=== PATIENT | female | born 1990 | race African-American/Black ===

== ENCOUNTER 2019-05-02 11:10 | Emergency (ER) | payer SELFPAY | END 2019-05-02 13:00 | disposition left against medical advice (07) | LOC: ERS 11:10 | DX: Z53.21 Procedure and treatment not carried out due to patient leaving prior to being seen by health care provider (principal) ==

== ENCOUNTER 2022-09-05 17:40 | Inpatient (IN) | payer OTHER, BC ==
[2022-09-05] MEDS ORDERED: Morphine 4 MG/ML VIAL ONE (19:02)
[2022-09-05] MEDS ORDERED: Acetaminophen 500 MG TAB ONE (19:02)
[2022-09-05] MEDS ORDERED: Ipratropium/Albuterol 3 ML NEB NEB PRN (19:43)
[2022-09-05] MEDS ORDERED: Morphine 2 MG/ML VIAL SLOW IVP PRN (19:43)
[2022-09-05] MEDS ORDERED: Dextrose 5% in Water 1,000 ML IV PRN (19:43)
[2022-09-05] MEDS ORDERED: Ondansetron ODT 4 MG TAB PO PRN (19:43)
[2022-09-05] MEDS ORDERED: Ondansetron PF 4 MG/2 ML Vial IVP PRN (19:43)
[2022-09-05] MEDS ORDERED: Dextrose 50% Abboject 50 ML SYRINGE SLOW IVP PRN (19:43)
[2022-09-05] MEDS ORDERED: Sodium Chloride 0.9% 1,000 ML IV SCH (19:45)
[2022-09-05] MEDS ORDERED: Cyclobenzaprine 10 MG TAB PO PRN (19:47)
[2022-09-05] MEDS ORDERED: traMADol HCl 50 MG TAB PO PRN ×2 (19:47)
[2022-09-05 20:45] LABS: #Lymphocytes 0.9 thou/uL (1.20-3.40); #Monocytes 0.1 thou/uL (0.11-0.59); #Neutrophils 11.3 thou/uL (1.40-6.50); %Basophils 0.1 % (0.0-1.0); %Eosinophils 0.1 % (0.0-10.0); %Lymphocytes 7.2 % (21.0-51.0); %Neutrophils 91.6 % (42.0-75.0); Hemoglobin 11.2 g/dL (12.0-16.0); Mean Corpuscular HGB CONC 34.8 g/dL (32.0-36.0); Mean Corpuscular Hemoglobin 27.7 pg (27.0-31.0); Mean Corpuscular Volume 79.8 fl (78.0-98.0); Mean Platelet Volume 9.4 fL (7.4-10.4); Platelet Count 193 10x3/uL (130-400); RBC Distribution Width 12.4 % (11.5-14.5); Red Blood Cell (RBC) Count 4.03 mill/uL (4.20-5.40); White Blood Cell (WBC) Count 12.4 10x3/uL (4.8-10.8)
[2022-09-05 21:04] LABS: ALT (SGPT) 26 U/L (8-55); AST (SGOT) 28 U/L (5-34); Albumin 3.6 g/dL (3.5-5.0); Alkaline Phosphatase 38 U/L (40-110); Anion Gap 14 mmol/L (10-20); BUN (Urea Nitrogen) 13 mg/dL (7.0-18.7); Bilirubin, Total 0.4 mg/dL (0.2-1.2); Calc. Creatinine Clearance 0 mL/min (70-130); Calcium 8.4 mg/dL (7.8-10.44); Carbon Dioxide 17 mmol/L (22-29); Chloride 110 mmol/L (98-107); Estimated GFR 99; Globulin 3.4 g/dL (2.4-3.5); Glucose 165 mg/dL (70-105); Potassium 4.2 mmol/L (3.5-5.1); Sodium 137 mmol/L (136-145)
[2022-09-05] MEDS: Acetaminophen 500 MG TAB PO SCH (22:01)
[2022-09-05] MEDS: Senokot S 8.6-50 MG TAB PO SCH (22:03)
[2022-09-05] MEDS: Famotidine 20 MG TAB PO SCH (22:03)
[2022-09-05] MEDS: Ketorolac Tromethamine 30 MG/ML VIAL IVP SCH (22:03)
[2022-09-06 01:18] VITALS: BMI 34.4
[2022-09-06] MEDS: Acetaminophen 500 MG TAB PO SCH ×4 (02:47→20:56)
[2022-09-06] MEDS: Ketorolac Tromethamine 30 MG/ML VIAL IVP SCH (02:48)
[2022-09-06 07:08] LABS: #Lymphocytes 2.9 thou/uL (1.20-3.40); #Monocytes 0.4 thou/uL (0.11-0.59); #Neutrophils 4.4 thou/uL (1.40-6.50); %Basophils 0.4 % (0.0-1.0); %Eosinophils 0.2 % (0.0-10.0); %Lymphocytes 37.5 % (21.0-51.0); %Monocytes 5.7 % (0.0-10.0); %Neutrophils 56.2 % (42.0-75.0); Hemoglobin 8.7 g/dL (12.0-16.0); Mean Corpuscular HGB CONC 33.1 g/dL (32.0-36.0); Mean Corpuscular Hemoglobin 26.5 pg (27.0-31.0); Mean Platelet Volume 8.9 fL (7.4-10.4); Platelet Count 178 10x3/uL (130-400); RBC Distribution Width 12.2 % (11.5-14.5); White Blood Cell (WBC) Count 7.8 10x3/uL (4.8-10.8)
[2022-09-06 07:30] LABS: Anion Gap 11 mmol/L (10-20); BUN (Urea Nitrogen) 10 mg/dL (7.0-18.7); Calc. Creatinine Clearance 139 mL/min (70-130); Carbon Dioxide 19 mmol/L (22-29); Chloride 111 mmol/L (98-107); Estimated GFR 120; Glucose 99 mg/dL (70-105); Potassium 4.2 mmol/L (3.5-5.1); Sodium 137 mmol/L (136-145)
[2022-09-06] MEDS ORDERED: Sodium Chloride 0.9% 1,000 ML IV SCH (08:00)
[2022-09-06] MEDS: Famotidine 20 MG TAB PO SCH ×2 (08:47→20:57)
[2022-09-06] MEDS: Polyethylene Glycol 3350 17 GM Packet PO SCH ×2 (09:11→13:59)
[2022-09-06] MEDS: Senokot S 8.6-50 MG TAB PO SCH ×2 (09:12→20:57)
[2022-09-06 11:52] LABS: INR-International Normal Ratio 1.1; Prothrombin Time 14.6 sec (12.0-14.7)
[2022-09-06 11:53] LABS: PTT 25.5 sec (22.9-36.1)
[2022-09-07] MEDS: Acetaminophen 500 MG TAB PO SCH ×2 (02:32→08:19)
[2022-09-07 06:31] LABS: Hemoglobin 8.1 g/dL (12.0-16.0); Mean Corpuscular HGB CONC 33.8 g/dL (32.0-36.0); Mean Corpuscular Hemoglobin 27.3 pg (27.0-31.0); Mean Corpuscular Volume 80.7 fl (78.0-98.0); Mean Platelet Volume 8.7 fL (7.4-10.4); Platelet Count 169 10x3/uL (130-400); RBC Distribution Width 12.2 % (11.5-14.5); Red Blood Cell (RBC) Count 2.98 mill/uL (4.20-5.40); White Blood Cell (WBC) Count 5.1 10x3/uL (4.8-10.8)
[2022-09-07 06:49] LABS: Anion Gap 10 mmol/L (10-20); BUN (Urea Nitrogen) 9 mg/dL (7.0-18.7); Calc. Creatinine Clearance 126 mL/min (70-130); Calcium 8.1 mg/dL (7.8-10.44); Carbon Dioxide 21 mmol/L (22-29); Chloride 112 mmol/L (98-107); Estimated GFR 111; Glucose 80 mg/dL (70-105); Phosphorus 2.5 mg/dL (2.3-4.7); Potassium 3.8 mmol/L (3.5-5.1); Sodium 139 mmol/L (136-145)
[2022-09-07] MEDS: Polyethylene Glycol 3350 17 GM Packet PO SCH (08:18)
[2022-09-07] MEDS: Famotidine 20 MG TAB PO SCH (08:18)
[2022-09-07] MEDS: Senokot S 8.6-50 MG TAB PO SCH (08:21)
[2022-09-07] MEDS ORDERED: Ascorbic Acid 500 mg Chewable Tablet PO SCH (09:00)
[2022-09-07 09:22] LABS: Band 1 % (5-11); Lymphocytes 54 % (21-51); MDiff Complete? YES; Monocytes 3 % (0-10); Neutrophil 42 % (42-75); Platelet Morphology Comment Appears Adequate; Polychromasia SLIGHT = 2-3 cells (100X) (0-2/hpf)
[2022-09-07 13:06] VITALS: BP 123/73; TEMP 98.3
[2022-09-07] MEDS ORDERED: Ferrous Sulfate 325 MG TAB PO SCH (17:00)
== END 2022-09-07 15:26 | disposition home or self-care (01) | DRG 552 ==
LOC: ERS 17:40 → SJJU 19:43 → OBSVTOIN 09-06 08:41
PROVIDERS: ADMIT Surgery; ATTEND Surgery
DX: S32.030A Wedge compression fracture of third lumbar vertebra, initial encounter for closed fracture (principal); S32.050A Wedge compression fracture of fifth lumbar vertebra, initial encounter for closed fracture; M51.46 Schmorl's nodes, lumbar region; K63.89 Other specified diseases of intestine; V43.62XA Car passenger injured in collision with other type car in traffic accident, initial encounter; Y92.410 Unspecified street and highway as the place of occurrence of the external cause
CPT/HCPCS: 36415; 80048; 83735; 84100; 85025; 85610; 85730; 86850; 86900; 86901; 96375; 96376; G0378; G0390; J1885; J2270; J7050